=== PATIENT | female | born 1955 | race Caucasian/White ===

== ENCOUNTER 2019-12-04 14:48 | Emergency (ER) | payer MEDICARE, SELFPAY ==
--- NOTE | ~2019-12-04 | CT_ITS ---
EXAMINATION: CT brain wo con DATE: 12/04/2019 17:47 INDICATION: Right frontal headache. Hypertension. TECHNIQUE: Computed tomography (CT) of the head was performed without intravenous contrast. The dose- length product was 604.33 mGy-cm. The mA was adjusted according to patient size. Iterative reconstruc tion technique was employed. COMPARISON: No prior studies for comparison. FINDINGS: There is a heterogeneous right frontal lobe mass measuring 3 x 2.8 cm with areas of increas ed density internally, possibly hemorrhage. There is a large amount of surrounding vasogenic edema. T here are additional areas of hypodensity in the left frontal lobe. There is mass effect with mild mid line shift to the left measuring approximately 3 mm. No ventriculomegaly. Basilar cisterns are patent . There is left maxillary, ethmoid and sphenoid sinus disease. Mastoids are pneumatized. No depressed skull fractures. There are scattered mild periventricular and subcortical white matter changes, most likely related to small vessel ischemic disease (microangiopathy). There is intracranial atheroscler osis. IMPRESSION: 1. 3 cm heterogeneous right frontal lobe mass, suspicious for metastatic disease. Possible associated internal hemorrhage. Large amount of surrounding vasogenic edema with mass effect causing midline sh ift to the left measuring 3 mm. Hypodense area in the left frontal lobe may represent an additional m ass versus old infarct. Recommend correlation with MRI. Reviewed, dictated and finalized at location [facility]. [employer] IMPRESSION: 1. 3 cm heterogeneous right frontal lobe mass, suspicious for metastatic diseas e. Possible associated internal hemorrhage. Large amount of surrounding vasogen ic edema with mass effect causing midline shift to the left measuring 3 mm. Hyp odense area in the left frontal lobe may represent an additional mass versus ol d infarct. Recommend correlation with MRI.
[2019-12-04 14:53] VITALS: BP 131/66; PULSE 82; RESP 20; TEMP 36.7; O2SAT 100
--- NOTE | 2019-12-04 16:47 | ED.HA ---
HPI - Headache General Chief Complaint: Headache <Donnell Nair MD - Last Filed: 12/04/19 18:27> Stated Complaint: COLBERT <Donnell Nair MD - Last Filed: 12/04/19 18:27> Time Seen by Provider: 12/04/19 16:36 <Donnell Nair MD - Last Filed: 12/04/19 18:27> Source: patient and RN notes reviewed <Donnell Nair MD - Last Filed: 12/04/19 18:27> Mode of arrival: ambulatory <Donnell Nair MD - Last Filed: 12/04/19 18:27> Limitations: no limitations <Donnell Nair MD - Last Filed: 12/04/19 18:27> History of Present Illness HPI Narrative: Pt is a 64 y/o female who presents to the ED with c/o a constant generalized headache which began 1.5 months ago that has been progressively worsening. Pt also reports dizziness associated with the headache, but denies any vision changes, a fever, chills, or focal weakness. She denies having a recent fall which could be causing her symptoms. Pt states Tylenol helped alleviate her symptoms. She reports she was at Dr. Ochoa' office who prompted her to come to the ED to be evaluated. <Donnell Nair MD - Last Filed: 12/04/19 18:27> MD elicited complaint: headache (generalized) <Donnell Nair MD - Last Filed: 12/04/19 18:27> Pertinent past history: other (none) <Donnell Nair MD - Last Filed: 12/04/19 18:27> Onset (ago): month(s) (1.5 months ago) <Donnell Nair MD - Last Filed: 12/04/19 18:27> Onset description: suddenly <Donnell Nair MD - Last Filed: 12/04/19 18:27> Location: generalized <Donnell Nair MD - Last Filed: 12/04/19 18:27> Quality & Timing: progressively worsening <Donnell Nair MD - Last Filed: 12/04/19 18:27> Exacerbating factors: none <Donnell Nair MD - Last Filed: 12/04/19 18:27> Relieving factors: other (Tylenol) <Donnell Nair MD - Last Filed: 12/04/19 18:27> Associated symptoms: other (dizziness) <Donnell Nair MD - Last Filed: 12/04/19 18:27> Related Data Home Medications: Home Medications Medication Instructions Recorded Confirmed acebutolol 200 mg capsule 200 mg PO DAILY 08/18/19 amoxicillin 500 mg capsule 500 mg PO Q12H 08/18/19 ascorbate calcium (vitamin C) 500 500 mg PO DAILY 08/18/19 mg tablet aspirin 81 mg tablet,delayed 81 mg PO DAILY 08/18/19 release cholecalciferol (vitamin D3) 50 2,000 unit PO DAILY 08/18/19 mcg (2,000 unit) capsule ciprofloxacin HCl 250 mg tablet 250 mg PO Q12H 08/18/19 fluticasone propionate 50 1 spray NASAL BID 08/18/19 mcg/actuation nasal spray,suspension meloxicam 15 mg tablet 15 mg PO DAILY 08/18/19 montelukast 10 mg tablet 10 mg PO DAILY 08/18/19 mupirocin 2 % topical ointment 1 applic TOPICAL BID 08/18/19 omeprazole 20 mg capsule,delayed 20 mg PO DAILY 08/18/19 release pravastatin 10 mg tablet 10 mg PO DAILY 08/18/19 vitamin B12 500 mcg-folic acid 400 1 tablet PO DAILY 08/18/19 mcg tablet <Donnell Nair MD - Last Filed: 12/04/19 18:27> Allergies/Adverse Reactions: Allergies Allergy/AdvReac Type Severity Reaction Status Date / Time ibuprofen Allergy Mild Unknown Verified 05/02/19 15:40 Aminoglycosides Allergy Unknown Unverified 05/02/19 15:40 bacitracin Allergy Unknown Verified 01/23/19 15:15 cortisone Allergy Unknown Verified 01/23/19 15:15 erythromycin base Allergy Unknown Verified 01/23/19 15:13 gemifloxacin Allergy Unknown Verified 01/23/19 15:14 Macrolide Antibiotics Allergy Unknown Verified 05/02/19 15:40 neomycin Allergy Unknown Unverified 05/02/19 15:40 nitrofurantoin Allergy Unknown Verified 01/23/19 15:15 polymyxin B Allergy Unknown Verified 01/23/19 15:15 Sulfa (Sulfonamide Allergy Unknown Verified 01/23/19 15:13 Antibiotics) AFCTIV Allergy Intermediate THROAT Uncoded 03/22/12 15:15 SWELLING <Donnell Nair MD - Last Filed: 12/04/19 18:27> Review of Systems Review of Systems: All systems reviewed & are unremarkable except as n
[2019-12-04 17:46] LABS: Basophils Absolute Auto 0.1 K/mm3 (0.0-0.1); Basophils Percent Auto 0.7 % (0.2-1.2); Eosinophils Absolute Auto 0.3 K/mm3 (0-0.3); Eosinophils Percent Auto 3.6 % (0-4.4); Hematocrit 41.5 % (37.0-47.0); Immature Granulocyte Absolute 0.02 K/mm3 (0.00-0.031); Immature Granulocyte Percent A 0.2 % (0-0.5); Lymphocytes Percent Auto 20.6 % (18.3-44.2); Mean Corpuscular HGB Conc 31.3 g/dl (32-36); Mean Corpuscular Hemoglobin 29.7 pg (26-34); Mean Corpuscular Volume 94.7 fl (80-100); Monocytes Absolute Auto 0.6 K/mm3 (0.1-0.6); Monocytes Percent Auto 6.7 % (2.6-8.5); Neutrophils Percent Auto 68.2 % (45.5-73.1); Platelet Count Result 313 k/mm3 (150-375); Red Blood Count 4.38 M/mm3 (4.2-5.4); Red Cell Distribution Width 12.5 % (11.5-14.5); White Blood Count 8.7 K/mm3 (4.5-10.0)
[2019-12-04 18:01] LABS: Alanine Aminotransferase 36 U/L (4-35); Albumin Level 4.9 g/dL (3.5-5.1); Alkaline Phosphatase 96 U/L (38-126); Aspartate Amino Transferase 37 U/L (14-36); Bilirubin,Total 0.8 mg/dL (0.2-1.3); Blood Urea Nitrogen 21 mg/dL (7-17); CRP 1.1 mg/dL (<1.0); Calcium 9.8 mg/dL (8.4-10.2); Carbon Dioxide 25 mmol/L (22-30); Chloride 99 mmol/L (98-107); Estimated CRCL calculation 43 ml/min; Estimated Glomerular Filt Rate > 60; Glucose 102 mg/dL (65-105); Potassium 4.2 mmol/L (3.4-5.0); Sodium 140 mmol/L (137-145)
[2019-12-04 19:29] VITALS: BP 167/80; PULSE 84; RESP 17; TEMP 37.1; O2SAT 98
--- NOTE | 2019-12-04 19:35 | PC.NURSE ---
1931 this RN called [phone]. Admitting info given to Carly at [facility] to get inpatient bed assignment. Per Carly she will call us back later to give a bed assignment,when one becomes available.
--- NOTE | 2019-12-04 19:49 | PC.NURSE ---
Addendum entered by Ana Lozano 12/04/19 20:18: Arcenio Ahmadi @ [facility] called with bed assignment....[facility] [id number]...[phone] Original Note: Called [facility] to follow-up. Patient was accepted at [facility], waiting on a bed.
--- NOTE | 2019-12-04 20:41 | PC.NURSE ---
Called [facility] to transport patient to [place]. ETA [id number]. #[phone]
== END 2019-12-04 22:07 | disposition short-term general hospital (02) ==
PROVIDERS: Family Medicine; Emergency Provider Emergency Medicine; PCP Family Medicine
DX: G93.9 Disorder of brain, unspecified (principal); I25.10 Atherosclerotic heart disease of native coronary artery without angina pectoris; I10 Essential (primary) hypertension; K21.9 Gastro-esophageal reflux disease without esophagitis; E78.2 Mixed hyperlipidemia; F17.200 Nicotine dependence, unspecified, uncomplicated
CPT/HCPCS: 36415; 70450; 80053; 85025; 86140; 96365; 99285; J0131